=== PATIENT | female | born 1930 | race Two or more races ===

== ENCOUNTER → 2017-07-27 | Outpatient (CLI) | payer OTHER ==
[~2017-07-27] MED LIST: AMBIEN5 MG PO; CALCIUM1 TAB PO; CIPRO500 MG PO; FENOFIBRATE160 MG; INTESTINEX680 MG PO; LIPITOR20 MG; LISINOPRIL-HCTZ1 TA7; LOTREL 5-10 MG1 CAP PO; METFORMIN HCL500 MG; OMEGA-31000 MG PO; PAXIL20 MG; SYNTHROID50 MCG PO; TOLTERODINE TART4 MG; ZANTAC150 MG PO
== END | disposition home or self-care (01) ==
LOC: RAD 15:36
DX: S52.031D Displaced fracture of olecranon process with intraarticular extension of right ulna, subsequent encounter for closed fracture with routine healing (principal)

== ENCOUNTER → 2018-02-07 | Emergency (ER) | payer OTHER ==
[~2018-02-07] VITALS: Ht 157.5 cm; Wt 63.0 kg
== END | disposition home or self-care (01) ==
LOC: ER 16:39
DX: S01.82XA Laceration with foreign body of other part of head, initial encounter (principal); W26.8XXA Contact with other sharp object(s), not elsewhere classified, initial encounter; Y93.01 Activity, walking, marching and hiking; Y92.89 Other specified places as the place of occurrence of the external cause; Y99.8 Other external cause status

== ENCOUNTER 2018-12-18 10:21 | Emergency (ER) | payer OTHER ==
[~2018-12-18] VITALS: Ht 157.5 cm; Wt 68.0 kg
[2018-12-18] MEDS ORDERED: CYMBALTA30 MG (10:35)
[2018-12-18] MEDS ORDERED: FAMOTIDINE20 MG (10:35)
[2018-12-18] MEDS ORDERED: ARICEPT10 MG (10:35)
[2018-12-18] MEDS ORDERED: JANUMET XR 50-1 EAC1 (10:36)
[2018-12-18] MEDS ORDERED: LOSARTAN POTASS25 MG (10:36)
[2018-12-18] MEDS ORDERED: ZYPREXA2.5 MG (10:36)
[2018-12-18] MEDS ORDERED: SYNTHROID75 MCG (10:37)
== END 2018-12-18 14:36 | disposition home or self-care (01) ==
LOC: ER 10:21
DX: S70.02XA Contusion of left hip, initial encounter (principal); W18.09XA Striking against other object with subsequent fall, initial encounter; Y93.89 Activity, other specified; Y92.89 Other specified places as the place of occurrence of the external cause; Y99.8 Other external cause status

== ENCOUNTER 2019-06-06 11:15 | Emergency (ER) | payer OTHER ==
[~2019-06-06] VITALS: Ht 157.5 cm; Wt 81.6 kg
[~2019-06-06 11:15] MED LIST changes: +ARICEPT10 MG; +CYMBALTA30 MG; +FAMOTIDINE20 MG; +JANUMET XR 50-1 EAC1; +LOSARTAN POTASS25 MG; +SYNTHROID75 MCG; +ZYPREXA2.5 MG
[2019-06-06] MEDS ORDERED: PROTONIX40 MG PO (11:39)
== END 2019-06-06 18:52 | disposition home or self-care (01) ==
LOC: ER 11:15 → CPU-OBS 11:24 → ER 18:52
DX: R07.89 Other chest pain (principal); R19.7 Diarrhea, unspecified